=== PATIENT | female | born 1985 | race African-American/Black ===

== ENCOUNTER 2025-08-10 00:42 | Emergency (ER) | payer MEDICAID ==
[~2025-08-10] VITALS: Ht 172.7 cm; Wt 122.0 kg
[2025-08-10 00:52] VITALS: TEMP 98.1; O2SAT 100
[2025-08-10 01:35] LABS: BASOPHILS % 0.7 % (0.0-2.0); EOSINOPHILS % 1.8 % (0.0-5.0); HEMATOCRIT. 40.7 % (36.0-48.0); HEMOGLOBIN. 13.0 g/dL (12.0-16.0); LYMPHOCYTES % 22.7 % (20.0-50.0); MEAN PLATELET VOLUME 8.4 fl (7.4-10.4); MONOCYTES % 7.1 % (2.0-8.0); NEUTROPHILS % 67.7 % (40.0-76.0); PLATELET 254 x1000/uL (130-400); RED BLOOD CELL COUNT 5.13 mill/uL (4.2-5.4); RED CELL DISTRIBUTION WIDTH 15.3 % (11.6-14.6)
[2025-08-10 01:48] LABS: CREATININE 1.1 mg/dL (0.6-1.0)
[2025-08-10 01:49] LABS: ETHANOL BLOOD 50 mg/dL (<10); UREA NITROGEN BLOOD 6 mg/dL (9-23)
[2025-08-10 01:51] LABS: ASPARTATE AMINOTRANSFERASE 14 IU/L (<34); BILIRUBIN DIRECT 0.2 mg/dL (<=3.0); BILIRUBIN TOTAL 0.5 mg/dL (0.1-1.0); HCG SCREEN NEGATIVE; PROTEIN TOTAL 7.3 g/dL (6.0-8.3)
[2025-08-10] MEDS ORDERED: ACET-2708 MT (04:21)
[2025-08-10] MEDS ORDERED: POLY119P2 MT (04:21)
[2025-08-10] MEDS: KETOROLAC 30MG/ML VIAL IM ONE (04:33)
[2025-08-10 04:46] VITALS: BP 134/81; PULSE 71; RESP 18; O2SAT 100
[2025-08-10] MEDS: NA PHOS,M-B/NA PHOS,DI-BA ENEMA 118ML PR ONE (04:46)
[2025-08-10] MEDS: NA PHOS,M-B/NA PHOS,DI-BA ENEMA 118ML PR NR (04:54)
== END 2025-08-10 04:52 | disposition home or self-care (01) ==
LOC: ER 00:42
DX: R10.30 Lower abdominal pain, unspecified (principal); Z98.890 Other specified postprocedural states
CPT/HCPCS: 80076; 80048; 80320; 84703; 83690; 85025; 36415; 74176; 96372; 99285; J1885; G0480

== ENCOUNTER 2025-09-27 23:41 | Emergency (ER) | payer OTHER, MEDICAID ==
[~2025-09-27] VITALS: Ht 165.1 cm; Wt 118.0 kg
[~2025-09-27 23:41] MED LIST: ACET-2708 MT; POLY119P2 MT
[2025-09-27 23:49] VITALS: TEMP 98.4; O2SAT 98
[2025-09-28] MEDS: METOCLOPRAMIDE HCL 10MG TABLET PO ONE (00:32)
[2025-09-28] MEDS: DIPHENHYDRAMINE 25MG CAPSULE PO ONE (00:32)
[2025-09-28] MEDS: ACETAMINOPHEN 500MG TABLET PO ONE (00:33)
[2025-09-28] MEDS ORDERED: LIDO-53 TP (02:08)
[2025-09-28] MEDS ORDERED: NAPR-1176 MT (02:08)
[2025-09-28 02:25] VITALS: BP 146/87; PULSE 75; RESP 19; O2SAT 100
== END 2025-09-28 02:40 | disposition home or self-care (01) ==
LOC: ER 23:41
DX: S06.9X9A Unspecified intracranial injury with loss of consciousness of unspecified duration, initial encounter (principal); V43.52XA Car driver injured in collision with other type car in traffic accident, initial encounter; Y93.89 Activity, other specified; Y92.89 Other specified places as the place of occurrence of the external cause; Y99.8 Other external cause status
CPT/HCPCS: 99284; Q0163; J8597